=== PATIENT | male | born 1995 | race Caucasian/White ===

== ENCOUNTER 2021-04-29 22:43 | Emergency (ER) | payer SELFPAY ==
[~2021-04-29] VITALS: Ht 193 cm; Wt 70.3 kg
[2021-04-29 22:47] VITALS: BP 132/84
--- NOTE | 2021-04-29 22:47 | NUR ---
PT PLACED IN ROOM 8.
--- NOTE | 2021-04-29 22:48 | NUR ---
25 YO M BIBA WITH C/C OF FEELING LIKE HE'S DYING AFTER TAKING [facility]C SUBLINGUAL DROPS PER EMS. PT STATES HE AND FRIEND TOOK THC DROPS AND BEGAN TO FEEL BAD. PT IS TEARFUL. PT STATES HE FEELS THAT HIS HEART IS BEATING TOO FAST. PT DENIES TAKING ANY OTHER DRUGS. PT IS IN STABLE CONDITION. VSS. DENIES HX, RX, AND ALLERG.
--- NOTE | 2021-04-29 23:31 | NUR ---
ARABELLA OAKLEY AT BEDSIDE FOR MEDICAL EXAMINATION
[2021-04-30] MEDS ORDERED: NACL 0.9% 1,000 ML IV ONE
[2021-04-30] MEDS ORDERED: LORazepam 2 MG/ML VIAL IVP ONE
--- NOTE | 2021-04-30 00:25 | NUR ---
URINE AND BLOOD COLLECTED, GIVEN TO KENZIE FROM LAB.
[2021-04-30 00:40] LABS: BASOPHILS # (AUTO) 0.1 K/uL (0.00-0.22); BASOPHILS % (AUTO) 0.5 % (0.0-2.0); EOSINOPHILS # (AUTO) 0.1 K/uL (0-0.4); EOSINOPHILS % (AUTO) 0.4 % (0.0-4.0); HEMATOCRIT 42.3 % (36-52); HEMOGLOBIN 13.8 g/dL (12.0-18.0); LYMPHOCYTES # (AUTO) 0.8 K/uL (2.0-11.5); LYMPHOCYTES % (AUTO) 5.9 % (20.5-51.1); MEAN CORPUSCULAR HEMOGLOBIN 28 pg (27-31); MEAN CORPUSCULAR HGB CONC 33 g/dL (33-37); MEAN CORPUSCULAR VOLUME 85.1 fL (80-94); MONOCYTES # (AUTO) 0.7 K/uL (0.8-1.0); MONOCYTES % (AUTO) 5.4 % (1.7-9.3); NEUTROPHILS # (AUTO) 11.7 K/uL (1.8-7.7); NEUTROPHILS % (AUTO) 87.8 % (42.2-75.2); PLATELET COUNT (AUTO) 277 K/uL (140-450); RED BLOOD CELL COUNT(AUTO) 4.98 MIL/uL (4.20-6.10); RED CELL DISTRIBUTION WIDTH 13.1 % (11.6-13.7); WHITE BLOOD COUNT (AUTO) 13.4 K/uL (4.8-10.8)
[2021-04-30 00:56] LABS: ALBUMIN 4.3 g/dL (3.4-5.0); ANION GAP 7.1 (8-16); ASPARTATE AMINOTRANSFERASE 17 U/L (15-37); CARBON DIOXIDE 30.7 mmol/L (21-32); CHLORIDE 103 mmol/L (98-107); CREATININE 0.9 mg/dL (0.6-1.3); GFR ARICAN-AMERICAN 134 mL/min (>90); GLUCOSE 109 mg/dL (74-106); POTASSIUM 3.8 mmol/L (3.5-5.1); SODIUM SERUM 137 mmol/L (136-145); TOTAL BILIRUBIN 0.5 mg/dL (0.0-1.0); UREA NITROGEN, BLOOD 11 mg/dL (7-18)
[2021-04-30 01:36] LABS: BARBITURATE, URINE NEGATIVE ng/ml (NEG <=200); BENZODIAZEPINE, URINE NEGATIVE ng/mL (NEG <=200); CANNABINOID, URINE POSITIVE ng/mL (NEG <=50); COCAINE, URINE NEGATIVE ng/mL (NEG <=300); OPIATE, URINE NEGATIVE ng/mL (NEG <=2000); PHENCYCLIDINE SCREEN,URINE NEGATIVE ng/mL (NEG <=25)
[2021-04-30 01:56] VITALS: BP 132/84
--- NOTE | 2021-04-30 01:56 | NUR ---
Patient discharged with v/s stable. Written and verbal after care instructions given and explained. Patient verbalized understanding. Ambulatory with steady gait. All questions addressed prior to discharge. Advised to follow up with PMD.
== END 2021-04-30 01:56 | disposition home or self-care (01) ==
LOC: MED 22:43
DX: F12.929 Cannabis use, unspecified with intoxication, unspecified (principal)
CPT/HCPCS: 36415; 80053; 80305; 84484; 85025; 93005; 96360; 99284; G0482; J7030